=== PATIENT | male | born 1970 | race Caucasian/White ===

== ENCOUNTER → 2023-08-01 11:29 | Outpatient (REF) | payer OTHER, SELFPAY | LOC: HWRAD 11:29 | PROVIDERS: ATTENDING PHYSICIAN Nurse Practitioner Family; FAMILY PHYSICIAN Physician Assistant Medical | DX: S49.91XA Unspecified injury of right shoulder and upper arm, initial encounter (principal) | CPT/HCPCS: 73030 ==